=== PATIENT | male | born 1955 | race Caucasian/White ===

== ENCOUNTER 2017-12-23 09:20 | Inpatient (IN) | payer OTHER ==
[2017-12-17 10:27] LABS: BASOPHILS % (AUTO) 0.4 % (0-1); EOSINOPHILS # (AUTO) 0.3 X10'3 (0-0.9); EOSINOPHILS % (AUTO) 3.5 % (0-6); LYMPHOCYTES # (AUTO) 2.1 X10'3 (1.1-4.8); LYMPHOCYTES % (AUTO) 26.4 % (21-51); MEAN CORPUSCULAR HEMOGLOBIN 30.4 PG (27.0-31.0); MEAN CORPUSCULAR HGB CONC 34.1 % (33.0-36.5); MEAN CORPUSCULAR VOLUME 89.1 FL (78-98); MEAN PLATELET VOLUME 7.9 FL (7.4-10.4); MONOCYTES # (AUTO) 0.4 X10'3 (0-0.9); MONOCYTES % (AUTO) 5.4 % (2-12); NEUTROPHILS % (AUTO) 64.3 % (42-75); PRE OP HEMATOCRIT 45.7 % (42.0-52.0); PRE OP HEMOGLOBIN 15.6 g/dL (14.0-17.9); PRE OP PLATELET COUNT 204 X10'3 (140-440); RED BLOOD COUNT 5.13 X10'6 (4.70-6.10); RED CELL DISTRIBUTION WIDTH 14.3 % (11.5-14.5)
[2017-12-17 10:42] LABS: ALBUMIN 3.6 G/DL (3.4-5.0); ALKALINE PHOSPHATASE 79 IU/L (46-116); BLOOD UREA NITROGEN 16 MG/DL (7-18); BUN/CREATININE RATIO 11.8 (5.4-32.0); CALCIUM 9.2 MG/DL (8.5-10.1); CHLORIDE 105 MMOL/L (99-107); CREATININE 1.36 MG/DL (0.60-1.10); PRE OP ALT 23 U/L (30-65); PRE OP ANION GAP 7 (8-16); PRE OP AST 14 U/L (10-37); PRE OP BILIRUB, TOTAL 0.3 MG/DL (0.0-1.0); PRE OP GLUCOSE 115 MG/DL (70-104); PRE OP POTASSIUM 4.3 MMOL/L (3.4-5.1); PRE OP SODIUM 142 MMOL/L (135-145); TOTAL CARBON DIOXIDE 30.4 MMOL/L (24-32); TOTAL PROTEIN 7.2 G/DL (6.4-8.2); eGFR 53 ML/MIN
[2017-12-17 11:04] LABS: PRE OP INR 0.9 INR; PRE OP PROTIME 9.8 SECONDS (9.0-12.0)
[2017-12-23] VITALS (18 sets, daily range): BP systolic 82–154; BP diastolic 50–104
[~2017-12-23] VITALS: Ht 182.9 cm; Wt 91.9 kg
[~2017-12-23 09:20] MED LIST: FENO160T13 PO; MORP15TA PO; albuterol 2.5 MG/3 ML nebule NEB ONE; cefazolin/dext.iso 2gm/50ml 50 ML IV ONE; famotidine 20mg tablet PO ONE; ringers solution, lacted 1,000 ML IV SCH; vancomycin inj 1,500 MG in normal saline 300ml IV soln IV ONE
[2017-12-23] MEDS ORDERED: LIDOcaine 1% (10mg/ml) 2ml vial ONE (09:57)
[2017-12-23] MEDS ORDERED: tranexamic acid inj. 1,000 MG in normal saline 100ml IV soln 90 ML IV ONE (11:20)
[2017-12-23] MEDS ORDERED: ROPIVAcaine 0.5% (5mg/ml) 30ml vial ONE (11:21)
[2017-12-23] MEDS ORDERED: tetracaine 1% (10mg/ml) pres. free inj. ONE (11:21)
[2017-12-23] MEDS ORDERED: MIDAZolam 5mg/ml 2ml vial ONE (11:22)
[2017-12-23] MEDS ORDERED: fentaNYL/PF 50MCG/1 ML 2ML syringe ONE (11:22)
[2017-12-23] MEDS ORDERED: MORPHINE SULFATE/PF 0.5 MG/ML 10ML AMPUL ONE (11:22)
[2017-12-23] MEDS ORDERED: propofol inj 20 ML IV ONE ×2 (11:53)
[2017-12-23] MEDS ORDERED: ceFAZolin 1000mg inj IR ONE (12:07)
[2017-12-23] MEDS ORDERED: meperidine/PF 50mg/ml syringe IV PRN ×3 (12:30)
[2017-12-23] MEDS ORDERED: morphine 2 MG/ML inj. syringe IV PRN ×4 (12:30→14:40)
[2017-12-23] MEDS ORDERED: ondansetron/PF 4mg/2ml inj IV PRN ×2 (12:30→14:15)
[2017-12-23] MEDS ORDERED: normal saline 1000ml 1,000 ML IV SCH (12:30)
[2017-12-23] MEDS ORDERED: diphenhydrAMINE 50 mg/ml inj IV PRN (12:30)
[2017-12-23] MEDS ORDERED: naloxone 2mg/2ml inj 2 MG in normal saline 500ml IV soln 500 ML IV PRN (12:30)
[2017-12-23] MEDS ORDERED: ringers solution, lacted 1,000 ML IV SCH (12:30)
[2017-12-23] MEDS ORDERED: proCHLORperazine 10 MG/2 ml inj IV PRN (12:30)
[2017-12-23] MEDS ORDERED: cloNIDine hcl/PF 100mcg/ml inj ONE (14:05)
[2017-12-23] MEDS ORDERED: bisacodyl 10mg suppository rectal RC PRN (14:15)
[2017-12-23] MEDS ORDERED: magnesium hydroxide 30ml (MOM) UD suspension PO PRN (14:15)
[2017-12-23] MEDS ORDERED: HYDROcodone/acetaminophen 10/325mg tab PO PRN (14:15)
[2017-12-23] MEDS ORDERED: acetaminophen 325mg tablet PO PRN (14:15)
[2017-12-23] MEDS ORDERED: diphenhydrAMINE 25mg capsule PO PRN ×2 (14:15)
[2017-12-23] MEDS ORDERED: HYDROmorphone inj. 0.5 MG/0.5 ML DISP.SYRIN IV PRN (14:15)
[2017-12-23] MEDS: potassium cl 20mEq in 1/2 NS 1,000 ML IV SCH (15:36)
[2017-12-23] MEDS: cefazolin 1gm/NS 100mL 100 ML IV SCH ×2 (16:05→23:56)
[2017-12-23] MEDS ORDERED: tranexamic acid inj. 1,000 MG in normal saline 100ml IV soln 100 ML IV ONE (17:15)
[2017-12-23] MEDS: aspirin 81mg tab.chew PO SCH (17:52)
[2017-12-23] MEDS ORDERED: vancomycin/NS 1 GM ADD-VANTAGE 250 ML IV SCH (20:00)
[2017-12-23] MEDS: sennosides 8.6mg tablet PO SCH (20:13)
[2017-12-23] MEDS: morphine ER 30mg tablet PO SCH (20:15)
[2017-12-23] MEDS: HYDROcodone/acetaminophen 10/325mg tab PO PRN (20:24)
[2017-12-24 02:00] VITALS: BP 119/59
[2017-12-24] MEDS: potassium cl 20mEq in 1/2 NS 1,000 ML IV SCH ×2 (03:31→17:44)
[2017-12-24] MEDS: HYDROcodone/acetaminophen 10/325mg tab PO PRN ×3 (05:43→15:27)
[2017-12-24 06:00] VITALS: BP 112/58
[2017-12-24 06:29] LABS: BASOPHILS % (AUTO) 0.4 % (0-1); EOSINOPHILS % (AUTO) 0.1 % (0-6); HEMATOCRIT 39.7 % (42.0-52.0); HEMOGLOBIN 13.8 g/dl (14.0-17.9); LYMPHOCYTES # (AUTO) 1.1 X10'3 (1.1-4.8); LYMPHOCYTES % (AUTO) 9.4 % (21-51); MEAN CORPUSCULAR HEMOGLOBIN 30.5 PG (27.0-31.0); MEAN CORPUSCULAR HGB CONC 34.7 % (33.0-36.5); MEAN CORPUSCULAR VOLUME 88.1 FL (78-98); MEAN PLATELET VOLUME 7.9 FL (7.4-10.4); MONOCYTES % (AUTO) 8.7 % (2-12); NEUTROPHILS # (AUTO) 9.7 X10'3 (1.8-7.7); NEUTROPHILS % (AUTO) 81.4 % (42-75); PLATELET COUNT 200 X10'3 (140-440); RED CELL DISTRIBUTION WIDTH 14.3 % (11.5-14.5); WHITE BLOOD COUNT 11.9 X10'3 (4.5-11.0)
[2017-12-24 06:33] LABS: ALANINE AMINOTRANSFERASE 20 U/L (12-78); ALBUMIN/GLOBULIN RATIO 0.9 (1.1-1.5); ALKALINE PHOSPHATASE 62 IU/L (46-116); ANION GAP 6 (8-16); ASPARTATE AMINO TRANSFERASE 13 U/L (10-37); BILIRUBIN,TOTAL 0.5 MG/DL (0.1-1.0); BLOOD UREA NITROGEN 16 MG/DL (7-18); BUN/CREATININE RATIO 11.3 (5.4-32.0); CALCIUM 8.5 MG/DL (8.5-10.1); CHLORIDE 103 MMOL/L (99-107); CREATININE 1.42 MG/DL (0.60-1.10); GLUCOSE 131 MG/DL (70-104); POTASSIUM 4.5 MMOL/L (3.5-5.1); SODIUM 137 MMOL/L (135-145); TOTAL CARBON DIOXIDE 27.7 MMOL/L (24-32); TOTAL PROTEIN 6.2 G/DL (6.4-8.2); eGFR 51 ML/MIN
[2017-12-24] MEDS: aspirin 81mg tab.chew PO SCH ×2 (08:17→17:51)
[2017-12-24] MEDS: morphine ER 30mg tablet PO SCH ×2 (08:18→19:30)
[2017-12-24] MEDS ORDERED: fenofibrate 145mg tablet PO SCH (08:30)
[2017-12-24 09:01] VITALS: BP 121/64
[2017-12-24 15:32] VITALS: BP 131/68
[2017-12-24] MEDS ORDERED: MORPHINE 2MG in 2ml NS syringe IV PRN (17:32)
[2017-12-24] MEDS ORDERED: oxyCODONE/APAP 10/325mg tablet PO PRN (17:45)
[2017-12-24 18:23] VITALS: BP_SYST 176; BP_SYST 196; BP_DIAS 86; BP_DIAS 87
[2017-12-24] MEDS ORDERED: mag hydrox/Alum hydrox/simeth 30ml oral suspension PO PRN (18:35)
[2017-12-24] MEDS: oxyCODONE/APAP 10/325mg tablet PO PRN (19:31)
[2017-12-24] MEDS: sennosides 8.6mg tablet PO SCH (19:31)
[2017-12-24 22:07] VITALS: BP 176/86
[2017-12-25] MEDS: oxyCODONE/APAP 10/325mg tablet PO PRN ×2 (00:24→06:48)
[2017-12-25] MEDS ORDERED: PER10325T PO (05:33)
[2017-12-25] MEDS ORDERED: ASPI-1265 PO (05:33)
[2017-12-25] MEDS ORDERED: WALKERFR (05:34)
[2017-12-25 05:53] LABS: BASOPHILS % (AUTO) 0.3 % (0-1); EOSINOPHILS # (AUTO) 0.2 X10'3 (0-0.9); EOSINOPHILS % (AUTO) 1.2 % (0-6); HEMATOCRIT 41.9 % (42.0-52.0); HEMOGLOBIN 14.5 g/dl (14.0-17.9); LYMPHOCYTES % (AUTO) 13.8 % (21-51); MEAN CORPUSCULAR HEMOGLOBIN 30.9 PG (27.0-31.0); MEAN CORPUSCULAR HGB CONC 34.5 % (33.0-36.5); MEAN CORPUSCULAR VOLUME 89.5 FL (78-98); MONOCYTES # (AUTO) 1.6 X10'3 (0-0.9); NEUTROPHILS # (AUTO) 10.5 X10'3 (1.8-7.7); NEUTROPHILS % (AUTO) 73.7 % (42-75); PLATELET COUNT 214 X10'3 (140-440); RED BLOOD COUNT 4.69 X10'6 (4.70-6.10); RED CELL DISTRIBUTION WIDTH 15.2 % (11.5-14.5); WHITE BLOOD COUNT 14.3 X10'3 (4.5-11.0)
[2017-12-25 06:00] VITALS: BP 177/84
[2017-12-25] MEDS: potassium cl 20mEq in 1/2 NS 1,000 ML IV SCH (06:11)
[2017-12-25 06:37] LABS: ALANINE AMINOTRANSFERASE 19 U/L (12-78); ALBUMIN 3.4 G/DL (3.4-5.0); ALBUMIN/GLOBULIN RATIO 0.9 (1.1-1.5); ALKALINE PHOSPHATASE 74 IU/L (46-116); ANION GAP 10 (8-16); ASPARTATE AMINO TRANSFERASE 16 U/L (10-37); BILIRUBIN,TOTAL 0.5 MG/DL (0.1-1.0); BLOOD UREA NITROGEN 15 MG/DL (7-18); BUN/CREATININE RATIO 10.2 (5.4-32.0); CALCIUM 9.7 MG/DL (8.5-10.1); CHLORIDE 99 MMOL/L (99-107); CREATININE 1.47 MG/DL (0.60-1.10); GLUCOSE 122 MG/DL (70-104); POTASSIUM 3.9 MMOL/L (3.5-5.1); SODIUM 137 MMOL/L (135-145); TOTAL CARBON DIOXIDE 27.9 MMOL/L (24-32); TOTAL PROTEIN 7.4 G/DL (6.4-8.2); eGFR 49 ML/MIN
[2017-12-25] MEDS: aspirin 81mg tab.chew PO SCH (06:48)
== END 2017-12-25 10:03 | disposition home or self-care (01) | DRG 470 ==
LOC: PAS IN 09:30 → EDSTATUS 11:30 → ORTHO 4S 15:05
PROVIDERS: ADMIT Orthopaedic Surgery; ATTEND Orthopaedic Surgery
PROC: 0SRD0JZ Replacement of Left Knee Joint with Synthetic Substitute, Open Approach (ICD-10-PCS; principal; 2017-12-23 11:15)
DX: M17.12 Unilateral primary osteoarthritis, left knee (principal); D62 Acute posthemorrhagic anemia; E78.5 Hyperlipidemia, unspecified; G89.29 Other chronic pain; M54.9 Dorsalgia, unspecified; Z88.6 Allergy status to analgesic agent; Z87.891 Personal history of nicotine dependence
CPT/HCPCS: 36415; 80053; 85025; 85610; 85730; 86885; 86900; 86901; 86920; 87070; 93005; 97110; 97116; 97161; 97530; A6223; A6449; A6454; A7000; C1713; C1758; C1776; J0690; J0735; J2250; J2270; J2274; J2704; J2795; J3010; J3370; J3490; J7030; J7120

== ENCOUNTER 2020-12-01 05:22 | Day surgery (SDC) | payer OTHER ==
[2020-11-24 14:33] LABS: BASOPHILS # (AUTO) 0.1 X10'3 (0-0.2); BASOPHILS % (AUTO) 0.8 % (0-1); EOSINOPHILS # (AUTO) 0.4 X10'3 (0-0.9); EOSINOPHILS % (AUTO) 4.2 % (0-6); LYMPHOCYTES # (AUTO) 2.2 X10'3 (1.1-4.8); LYMPHOCYTES % (AUTO) 25.5 % (21-51); MEAN CORPUSCULAR HEMOGLOBIN 30.9 PG (27.0-31.0); MEAN CORPUSCULAR HGB CONC 33.9 g/dL (33.0-36.5); MEAN CORPUSCULAR VOLUME 91.1 FL (78-98); MONOCYTES # (AUTO) 0.5 X10'3 (0-0.9); MONOCYTES % (AUTO) 5.6 % (2-12); NEUTROPHILS # (AUTO) 5.4 X10'3 (1.8-7.7); NEUTROPHILS % (AUTO) 63.9 % (42-75); PRE OP HEMATOCRIT 44.6 % (42.0-52.0); PRE OP HEMOGLOBIN 15.1 g/dL (14.0-17.9); PRE OP PLATELET COUNT 237 X10'3 (140-440); RED CELL DISTRIBUTION WIDTH 13.1 % (11.5-14.5)
[2020-11-24 14:49] LABS: ALBUMIN 3.8 G/DL (3.4-5.0); ALKALINE PHOSPHATASE 104 IU/L (46-116); BLOOD UREA NITROGEN 28 MG/DL (7-18); BUN/CREATININE RATIO 19.3 (5.4-32.0); CALCIUM 9.6 MG/DL (8.5-10.1); CHLORIDE 103 MMOL/L (99-107); CREATININE 1.45 MG/DL (0.60-1.10); PRE OP ALT 29 U/L (30-65); PRE OP ANION GAP 5 (8-16); PRE OP AST 16 U/L (10-37); PRE OP BILIRUB, TOTAL 0.2 MG/DL (0.0-1.0); PRE OP GLUCOSE 107 MG/DL (70-104); PRE OP POTASSIUM 4.6 MMOL/L (3.4-5.1); PRE OP SODIUM 140 MMOL/L (135-145); TOTAL PROTEIN 7.7 G/DL (6.4-8.2); eGFR 49 ML/MIN
[~2020-12-01] VITALS: Ht 182.9 cm; Wt 88.5 kg
[~2020-12-01 05:22] MED LIST changes: +ESZO3TAB17 PO; -FENO160T13 PO; -albuterol 2.5 MG/3 ML nebule NEB ONE; -cefazolin/dext.iso 2gm/50ml 50 ML IV ONE; -famotidine 20mg tablet PO ONE; -vancomycin inj 1,500 MG in normal saline 300ml IV soln IV ONE
[2020-12-01 05:30] VITALS: BP 138/76
[2020-12-01] MEDS ORDERED: albuterol 2.5 MG/3 ML nebule NEB ONE (05:30)
[2020-12-01] MEDS ORDERED: ceFAZolin 2gm in dextrose, iso 50 ML IV ONE (05:30)
[2020-12-01] MEDS ORDERED: famotidine 20mg tablet PO ONE (05:30)
[2020-12-01] MEDS ORDERED: LIDOcaine 1% (10mg/ml) 2ml vial ONE (06:11)
[2020-12-01] MEDS ORDERED: LIDOcaine 1% 30ml preserv. free vial ONE (06:45)
[2020-12-01] MEDS ORDERED: BUPIVAcaine/PF 2.5 mg/ml (0.25%) 30ml vial ONE (06:45)
[2020-12-01] MEDS ORDERED: hydrALAZINE 20mg/ml inj. IV PRN (07:15)
[2020-12-01] MEDS ORDERED: morphine 2 MG/ML inj. syringe IV PRN (07:15)
[2020-12-01] MEDS ORDERED: ringers solution, lacted 1,000 ML IV SCH (07:15)
[2020-12-01] MEDS ORDERED: ondansetron/PF 4mg/2ml inj IV PRN (07:15)
[2020-12-01] MEDS ORDERED: fentaNYL/PF 50MCG/1 ML 2ML syringe IV PRN ×2 (07:15)
[2020-12-01] MEDS ORDERED: morphine 4 MG/ML inj SYRINge IV PRN (07:15)
[2020-12-01] MEDS ORDERED: labetalol 20mg/4ml (5mg/ml) syringe IV PRN (07:15)
[2020-12-01] MEDS ORDERED: midazolam 1 mg/ML 2ml injection ONE (07:23)
[2020-12-01] MEDS ORDERED: fentaNYL/PF 50MCG/1 ML 2ML syringe ONE (07:23)
[2020-12-01] MEDS ORDERED: propofol inj 20 ML IV ONE (07:24)
[2020-12-01] MEDS ORDERED: dexamethasone sod phosphate 4mg/ml inj. ONE (07:24)
[2020-12-01] MEDS ORDERED: LIDOcaine 2% (20mg/ml) 5ml vial ONE (07:25)
[2020-12-01] MEDS ORDERED: ondansetron/PF 4mg/2ml inj ONE (07:25)
[2020-12-01] MEDS ORDERED: sevoflurane 250ml liquid IH ONE (07:35)
[2020-12-01] MEDS ORDERED: succinylcholine 20mg/ml inj IV ONE (07:43)
[2020-12-01] MEDS ORDERED: naloxone 0.4 mg/ml inj ONE (08:51)
[2020-12-01 09:05] VITALS: BP 164/111
[2020-12-01] MEDS ORDERED: oxyCODONE/APAP 5-325mg tablet PO PRN (09:05)
--- NOTE | 2020-12-01 09:05 | NUR ---
Received from OR via [facility], accompanied by Anesthesiologist. DR LOUIE and report given by Anesthesiolgist. PATIENT WAKING UP, NO S/S OF PAIN, V/S WNL, SCD ON, 20G PIV RFA-LR RUNNING 100/HR, DRSG TO RIGHT SCAPULA AREA - STERI STRIPS AND ISLAND DRSG - CDI
[2020-12-01 09:10] VITALS: BP 123/86
[2020-12-01 09:20] VITALS: BP 141/73
[2020-12-01 09:30] VITALS: BP 152/77
--- NOTE | 2020-12-01 09:35 | NUR ---
VS-WNL, PT DENIES PAIN, DRSG TO RIGHT SCAPULA -CDI, PATIENT VERBALIZED UNDERSTANDING, OPPORTUNITY TO ASK QUESTIONS GIVEN AND PATIENT COMFORTABLE WITH DC. IV TAKEN OUT WITHOUT COMPLICATION. PATIENT HAS MET ALL DC CRITERIA FOR DC HOME. I HAVE REVIEWED D/C INSTRUCTIONS WITH PATIENT-GIVEN PAPER RX FOR PAIN MEDS. TAKEN OUT VIA WHEELCHAIR WHERE PATIENT WAS TAKEN HOME WITH ALL BELONGINGS. FAMILY GAVE PATIENT TRANSPORT HOME.
== END 2020-12-01 09:35 | disposition home or self-care (01) ==
LOC: PAS 05:22
PROVIDERS: ATTEND Surgery
DX: R22.31 Localized swelling, mass and lump, right upper limb (principal); D17.21 Benign lipomatous neoplasm of skin and subcutaneous tissue of right arm; N18.9 Chronic kidney disease, unspecified; F17.210 Nicotine dependence, cigarettes, uncomplicated; G89.29 Other chronic pain; Z88.8 Allergy status to other drugs, medicaments and biological substances; Z20.822 Contact with and (suspected) exposure to COVID-19; Z79.899 Other long term (current) drug therapy; Z98.1 Arthrodesis status; Z98.890 Other specified postprocedural states; Z90.49 Acquired absence of other specified parts of digestive tract; Z96.659 Presence of unspecified artificial knee joint
CPT/HCPCS: 23076; 36415; 80053; 82948; 85025; 87635; 93005; J0330; J1100; J2001; J2250; J2310; J2405; J2704; J3010; J3490; J7120; A4215; A4618; A7000

== ENCOUNTER 2023-11-27 06:55 | Outpatient (CLI) | payer OTHER ==
[~2023-11-27] VITALS: Ht 182.9 cm; Wt 97.5 kg
[~2023-11-27 06:55] MED LIST changes: -ringers solution, lacted 1,000 ML IV SCH
[2023-11-27] MEDS: albuterol 2.5 MG/3 ML nebule NEB ONE (07:31)
[2023-11-27 07:33] VITALS: PULSE 64; RESP 14; O2SAT 98
== END 2023-11-27 23:59 | disposition home or self-care (01) ==
LOC: RT 06:55
PROVIDERS: ATTEND Chiropractor
DX: R91.1 Solitary pulmonary nodule (principal)
CPT/HCPCS: 94060; 94760